=== PATIENT | female | born 1985 | race Two or more races ===

== ENCOUNTER 2017-10-08 06:34 | Emergency (ER) | payer OTHER ==
[2017-10-08 06:43] VITALS: BP 101/65; PULSE 68; TEMP 98.3; BMI 26.5
--- NOTE | 2017-10-08 07:25 | PDOC ---
History of Present Illness - General Chief Complaint: Wound Stated Complaint: LH 2ND FINGER PAIN Time Seen by Provider: 10/08/17 07:25 - History of Present Illness Initial Comments: 10/08/17 07:27 Chief complaint: Infection around fingernail History of present illness: Patient noticed redness, swelling, and pus at the edge of her fingernail, left index finger, 2 days ago. Yesterday there was a small amount of drainage, white pus. Denies recent manicures or other trauma to the nail. Review of systems: No fever/chills, finger injury, pain or limited motion, numbness or tingling Past medical history: Healthy female, no active medical problems, breast- feeding. Social/family history reviewed and noncontributory Physical exam: Alert well-developed well-nourished no acute distress cheerful and cooperative Afebrile, vital signs normal Left index finger: There is a paronychia present at the nail margin, radial side. There is a small amount of pus present and minimal surrounding erythema. There is no extension to the DIP joint or the proximal finger, hand Impression: Paronychia, partially drained, still mildly inflamed Plan: Incision and drainage, wound care, and follow-up if recurrence. Past History - Past Medical History Allergies/Adverse Reactions: Allergies Allergy/AdvReac Type Severity Reaction Status Date / Time No Known Allergies Allergy Unverified 10/08/17 06:36 Home Medications: Ambulatory Orders Multivitamins [Tab-A-Vit -] 1 tab PO DAILY 10/08/17 Anemia: Yes Asthma: Yes COPD: No - Suicide/Smoking/Psychosocial Hx Smoking History: Never smoked *Physical Exam - Vital Signs Last Vital Signs Temp Pulse Resp BP Pulse Ox 98.3 F 68 16 101/65 99 10/08/17 06:40 10/08/17 06:40 10/08/17 06:40 10/08/17 06:40 10/08/17 06:40 Medical Decision Making - Medical Decision Making 10/08/17 07:31 Procedure note: Drainage of paronychia The finger was prepped with Betadine, then cleansed with normal saline The nail margin was elevated with a 15 blade, releasing a small amount of white pus. The incision was enlarged slightly to encourage drainage, bleeding was controlled with pressure, and a bacitracin dressing was applied. Wound care was discussed with the patient, and follow-up as necessary. Fully ambulatory and in no pain or other distress at discharge to follow-up as recommended. *DC/Admit/Observation/Transfer Diagnosis at time of Disposition: Paronychia - Discharge Dispostion Disposition: HOME Condition at time of disposition: Improved Admit: No - Referrals Referrals: Franklin Basurto [Primary Care Provider] - 3 days - Patient Instructions Printed Discharge Instructions: DI for Paronychia - Post Discharge Activity
== END 2017-10-08 07:30 | disposition home or self-care (01) ==
LOC: FER 06:34
PROC: 0H9QXZZ Drainage of Finger Nail, External Approach (ICD-10-PCS; principal; 2017-10-08)
DX: L03.011 Cellulitis of right finger (principal)
CPT/HCPCS: 99281-25

== ENCOUNTER 2018-11-11 07:33 | Emergency (ER) | payer OTHER ==
[2018-11-11 07:43] VITALS: BP 92/59; PULSE 66; TEMP 98.3; BMI 23.9
--- NOTE | 2018-11-11 07:54 | PDOC ---
History of Present Illness - General Chief Complaint: Cold Symptoms Stated Complaint: cold symptoms Time Seen by Provider: 11/11/18 07:35 History Source: Patient Exam Limitations: No Limitations - History of Present Illness Initial Comments: 11/11/18 07:35 Ms Jacobsen is a 33 yo F with no significant past medical history presenting to the Emergency Department with a complaint of an upper respiratory syndrome. Pt states her symptoms began 3 weeks ago. She noted low grade temperatures, congestion and cough. her symptoms lasted approximately 1 week and then resolved. She was well for one day and then her symptoms again returned. She improved by this past tuesday (4 days ago) but then her symptoms all returned on tuesday. She has : Chills, cough, congestion, excessive mucous production (more than she has ever had) Pt had influenza vaccination She denies: Nausea, vomiting, diarrhea (currently) Chest pain, shortness of breath, wheezing Dysuria She presents today to the ER because her symptoms have been persistent over the past 3 weeks and she is now feeling worse PMH: denies PSH: C section Meds: denies ALL: NKDA Social: Denies drugs, tobacco. Alcohol socially FH: non contributory ROS: GENERAL/CONSTITUTIONAL: Yes: chills No: fever, weakness, loss of appetite. HEAD, EYES, EARS, NOSE AND THROAT: No: ear pain, sore throat, throat swelling. CARDIOVASCULAR: No: chest pain, lightheadedness, palpitations, syncope RESPIRATORY: Yes: cough No: shortness of breath GASTROINTESTINAL: No: nausea, vomiting, diarrhea, abdominal pain. GENITOURINARY: No: dysuria, frequency, urgency, flank pain. MUSCULOSKELETAL: No: back pain, neck pain, joint pain SKIN: No: rash . NEUROLOGIC: No: headache, weakness PE: GENERAL: The patient is in no acute distress. HEAD: Normal, no facial tenderness EYES: PERRLA, EOMI, sclera anicteric, conjunctiva clear, TM nml. ENT: Ears normal, nares patent, oropharynx clear without exudates. Moist mucous membranes. NECK: Normal range of motion, supple without lymphadenopathy LUNGS: Breath sounds equal, clear to auscultation bilaterally. No wheezes, and no crackles. HEART:Regular rate and rhythm, normal S1 and S2 without murmur, rub or gallop. ABDOMEN: Soft, nontender, normoactive bowel sounds. EXTREMITIES: Normal range of motion, no edema. NEUROLOGICAL: Cranial nerves II through XII grossly intact. Normal speech. No focal neurological deficits. SKIN: Warm, Dry, normal turgor, no rashes or lesions noted. 11/11/18 07:57 11/11/18 08:13 Past History - Past Medical History Allergies/Adverse Reactions: Allergies Allergy/AdvReac Type Severity Reaction Status Date / Time No Known Allergies Allergy Unverified 10/08/17 06:36 Home Medications: Ambulatory Orders Multivitamins [Tab-A-Vit -] 1 tab PO DAILY 10/08/17 Amoxicillin/Potassium Clav [Augmentin 875-125 Tablet] 1 each PO BID #20 tablet 11/11/18 Ascorbic Acid [Vitamin C] 1,000 mg PO DAILY 11/11/18 Calcium Carbonate [Calcium] 500 mg PO DAILY 11/11/18 Cranberry 500 mg PO DAILY 11/11/18 Lactobacillus Rhamnosus GG [Culturelle] 1 each PO DAILY 11/11/18 Pseudoephedrine HCl [Sudafed] 60 mg PO Q6H PRN #30 tablet 11/11/18 Anemia: Yes Asthma: Yes COPD: No - Suicide/Smoking/Psychosocial Hx Smoking History: Never smoked Medical Decision Making - Medical Decision Making 11/11/18 08:07 Please note, pt reports that her blood pressure is typically low She presents with what is likely a viral syndrome 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 she has 2 children that are in daycare/pre school She has several ill contacts That said, this is possibly an atypical pneumonia Will do a CXR If negative, consider treatment with decongestants and abx for sinusitus Follow up with PMD 11/11/18 08:37 CXR - no infiltrate seen Will discharge to home Will ask pt to follow up with PMD *DC/Admit/Observation/Transfer Diagnosis at time of Disposition: Upper respiratory infection - Discharge Dispostion Disposition: HOME Condition at time of disposition: Stable Decision to Admit order: No - Referrals - Patient Instructions Printed Discharge Instructions: DI for Viral Upper Respiratory Infection -- Adult Additional Instructions: Thank you for coming in to the ER today. Return to the emergency department immediately with ANY new, persistent or worsening symptoms. Please take medications as prescribed. Rest as much as possible. Stay hydrated. Antibiotics are to treat possible sinus infection. please take a probiotic with the antibiotics. You should follow up with your primary doctor as soon as possible regarding today's emergency department visit. Please make sure your doctor reviews the results of your emergency evaluation. Thank you for coming to the [facility] today for your care. It was a pleasure to see you today. Please note that your evaluation is INCOMPLETE until you follow-up with your doctor. - Post Discharge Activity
== END 2018-11-11 09:05 | disposition home or self-care (01) ==
LOC: FER 07:33
DX: J06.9 Acute upper respiratory infection, unspecified (principal); J45.909 Unspecified asthma, uncomplicated; D64.9 Anemia, unspecified
CPT/HCPCS: 71046-TC-FY; 84703; 99282-25

== ENCOUNTER 2022-07-25 07:55 | Emergency (ER) | payer OTHER ==
[2022-07-25 08:01] VITALS: BP 99/58; PULSE 103; RESP 18; TEMP 97.8; BMI 23.9
== END 2022-07-25 09:29 | disposition home or self-care (01) ==
LOC: FER 07:55
DX: U07.1 COVID-19 (principal)
CPT/HCPCS: 0241U-QW; 99283-25

== ENCOUNTER 2024-03-14 17:46 | Emergency (ER) | payer OTHER ==
[2024-03-14 18:05] VITALS: BP 98/52; PULSE 89; RESP 18; TEMP 97.9; BMI 23.9
[2024-03-14 18:28] LABS: URINE APPEARANCE CLEAR; URINE BILIRUBIN NEGATIVE (NEGATIVE); URINE COLOR YELLOW; URINE GLUCOSE (UA) NEGATIVE (NEGATIVE); URINE KETONE NEGATIVE (NEGATIVE); URINE LEUK ESTERASE NEGATIVE (NEGATIVE); URINE NITRITE NEGATIVE (NEGATIVE); URINE PROTEIN NEGATIVE (NEGATIVE); URINE UROBILINOGEN 0.2 mg/dL (0.2-1.0)
[2024-03-14 18:32] LABS: HCG,QUALITATIVE URINE Negative
[2024-03-14 20:15] LABS: BASO % 0.6 % (0-2.0); EOS % 1.6 % (0-4.5); HEMATOCRIT 35.1 % (32.4-45.2); HEMOGLOBIN 11.6 GM/dL (10.7-15.3); LYMPH % 36.6 % (8-40); MCH 30.8 pg (25.7-33.7); MEAN CELL VOLUME 93.3 fl (80-96); MEAN PLT VOLUME 7.1 fl (7.5-11.1); MONO % 8.7 % (3.8-10.2); NEUT % 52.5 % (42.8-82.8); PLATELET COUNT 279 10^3/uL (134-434); RBC 3.76 M/mm3 (3.60-5.2); RDW 12.8 % (11.6-15.6); WHITE BLOOD COUNT 6.3 K/mm3 (4.0-10.0)
[2024-03-14 20:29] LABS: POTASSIUM 4.3 mmol/L (3.5-5.1)
[2024-03-14 20:31] LABS: ALBUMIN 4.1 g/dl (3.4-5.0); CALCIUM 9.6 mg/dL (8.5-10.1)
[2024-03-14 20:34] LABS: CREATININE 0.7 mg/dL (0.55-1.3)
[2024-03-14 20:36] LABS: BILIRUBIN,TOTAL 0.6 mg/dL (0.2-1); TOT PROT 7.7 g/dl (6.4-8.2)
[2024-03-14 21:16] LABS: BLOOD UREA NITROGEN 14.4 mg/dL (7-18)
== END 2024-03-14 20:51 | disposition home or self-care (01) ==
LOC: JER 17:46
DX: R10.9 Unspecified abdominal pain (principal)
CPT/HCPCS: 36415; 76775-TC; 80053; 81003; 84703; 85025; 87086; 99284-25